=== PATIENT | male | born 1990 | race Caucasian/White ===

== ENCOUNTER → 2018-05-27 06:58 | Outpatient (CLI) | payer OTHER, MEDICAID, SELFPAY ==
--- NOTE | 2018-05-27 07:03 | DI.MRI.S_ITS ---
PROCEDURE: MR ANGIO HEAD WO CON INDICATIONS: Chronic Daily Headache TECHNIQUE: Noncontrast axial 3-D [id number] MR angiogram, with 3-dimensional maximum intensity projection (MIP) reformats of the internal carotid arteries and posterior circulation then performed. COMPARISON: None. FINDINGS: Image quality: Excellent. Anterior circulation: Intracranial internal carotid arteries demonstrate normal size and intraluminal flow signal. The flow within the paired anterior cerebral arteries is normal and symmetric. The flow within the middle cerebral arteries is normal and symmetric. The anterior communicating artery is seen. No stenoses, occlusions, or aneurysms. Posterior circulation: Visualized portions of the vertebral arteries demonstrate normal caliber, and join to form a normal appearing basilar artery. The flow within the posterior cerebral arteries is normal and symmetric. No stenoses, occlusions, or aneurysms. IMPRESSION: Normal anterior and posterior circulations. Dictated by: Sophie Rosales M.D. on 05/27/2018 at 9:34 Approved by: Sophie Rosales M.D. on 05/27/2018 at 9:35
--- NOTE | 2018-05-27 07:41 | DI.MRI.S_ITS ---
PROCEDURE: MR HEAD/BRAIN WO CON INDICATIONS: chronic daily headachezs > 1 year. TECHNIQUE: Noncontrast axial T1 spin echo, axial T2 fast spin echo, sagittal and axial FLAIR, coronal T2 fast spin echo, axial gradient echo, axial diffusion and ADC through the brain. COMPARISON: None. FINDINGS: Image quality: Excellent. CSF Spaces: Basal cisterns are patent. No extra-axial fluid collections. Ventricles are normal in size and shape. Brain: No intracranial masses or hemorrhage. Botello/white matter interface is normal. Brainstem appears normal. Diffusion-weighted images demonstrate no acute ischemic insult. No chronic ischemic insults. Normal intravascular flow voids are present. Skull and face: Calvarium has normal marrow signal. Orbits appear normal. Sinuses: Mastoids are clear. There is mild mucosal thickening in ethmoid sinuses bilaterally. A small mucous retention cyst is noted in the right ethmoid sinus. IMPRESSION: 1. No acute intracranial abnormalities. 2. Mild ethmoid sinus disease. Dictated by: Sophie Rosales M.D. on 05/27/2018 at 9:35 Approved by: Sophie Rosales M.D. on 05/27/2018 at 9:39
== END ==
PROVIDERS: Visit Provider Family Medicine
DX: R51 Headache (principal); J32.2 Chronic ethmoidal sinusitis; J34.1 Cyst and mucocele of nose and nasal sinus
CPT/HCPCS: 70544; 70551